=== PATIENT | female | born 1965 | race Caucasian/White ===

== ENCOUNTER → 2016-04-17 | Outpatient (CLI) | payer BC ==
[2016-04-17 11:06] LABS: Follicle Stimulating Hormone 54.7 mIU/mL
--- NOTE | 2016-04-17 13:20 | MM ---
Reason for exam: screening (asymptomatic). Last mammogram was performed 2 years and 5 months ago. History: Patient is postmenopausal. Took hormonal contraceptives for 8 years beginning at age 32. Physical Findings: A clinical breast exam by your physician is recommended on an annual basis and results should be correlated with mammographic findings. MG Screening Mammo w CAD Bilateral CC and MLO view(s) were taken. Prior study comparison: November 27, 2013, bilateral MG screening mammo w CAD. November 25, 2012, bilateral digital screening mammo w/CAD. There are scattered fibroglandular densities. There is chronic nodularity in the right breast. No significant changes when compared with prior studies. ASSESSMENT: Benign, BI-RAD 2 RECOMMENDATION: Routine screening mammogram of both breasts in 1 year.
== END | disposition home or self-care (01) ==
LOC: RADMAMWWP 07:55
PROVIDERS: ATTEND Obstetrics & Gynecology
DX: Z12.31 Encounter for screening mammogram for malignant neoplasm of breast (principal); N91.2 Amenorrhea, unspecified; E78.5 Hyperlipidemia, unspecified; E03.9 Hypothyroidism, unspecified
CPT/HCPCS: 84439; 80061; 83001; 82670; 84443; G0202

== ENCOUNTER 2020-05-06 11:30 | Emergency (ER) | payer BC ==
[2020-05-06 11:54] VITALS: BP 162/101; PULSE 92; RESP 20; TEMP 98.4
--- NOTE | 2020-05-06 12:53 | XR ---
EXAMINATION TYPE: XR wrist complete LT DATE OF EXAM: 05/06/2020 CLINICAL HISTORY: pain TECHNIQUE: Frontal, lateral and oblique images of the left wrist are obtained. COMPARISON: None. FINDINGS: There is no acute fracture/dislocation evident. The joint spaces appear within normal bolton its. The overlying soft tissue appears unremarkable. IMPRESSION: There is no acute fracture or dislocation seen. ICD 10 NO FRACTURE, INITIAL EVALUATION
--- NOTE | 2020-05-06 12:54 | XR ---
EXAMINATION TYPE: XR hand complete LT DATE OF EXAM: 05/06/2020 CLINICAL HISTORY: pain TECHNIQUE: Frontal, lateral and oblique images of the left hand are obtained. COMPARISON: None. FINDINGS: There is no acute fracture/dislocation evident. The joint spaces appear within normal limi ts. The overlying soft tissue appears unremarkable. IMPRESSION: There is no acute fracture or dislocation. ICD 10 NO FRACTURE, INITIAL EVALUATION
--- NOTE | 2020-05-06 13:16 | ED ---
General Adult HPI - General Chief complaint: Extremity Injury, Upper Stated complaint: lt hand injury Source: patient Mode of arrival: ambulatory Limitations: no limitations - History of Present Illness Initial comments: 54-year-old female with a past medical history of hypertension presents to the emergency room for a chief complaint of hand pain. Patient reports that she had her dog on a leash yesterday. States that the dog pulled her into the railing and she had her hand on the railing. States she is having pain in the wrist and hand, especially the thumb. She states it is painful to move her thumb. Patient denies any other injuries. Denies hitting her head.Patient has no other complaints at this time including shortness of breath, chest pain, abdominal pain, nausea or vomiting, headache, or visual changes. - Related Data Allergies Allergy/AdvReac Type Severity Reaction Status Date / Time No Known Allergies Allergy Verified 05/06/20 11:54 Review of Systems ROS Statement: Those systems with pertinent positive or pertinent negative responses have been documented in the HPI. ROS Other: All systems not noted in ROS Statement are negative. Past Medical History Past Medical History: Hypertension History of Any Multi-Drug Resistant Organisms: None Reported Past Surgical History: No Surgical Hx Reported Past Psychological History: No Psychological Hx Reported Smoking Status: Never smoker Past Alcohol Use History: None Reported Past Drug Use History: None Reported General Exam Limitations: no limitations General appearance: alert, in no apparent distress Head exam: Present: atraumatic, normocephalic, normal inspection Eye exam: Present: normal appearance, PERRL, EOMI. Absent: scleral icterus, conjunctival injection, periorbital swelling ENT exam: Present: normal exam, mucous membranes moist Neck exam: Present: normal inspection, full ROM. Absent: tenderness, meningismus, lymphadenopathy Respiratory exam: Present: normal lung sounds bilaterally. Absent: respiratory distress, wheezes, rales, rhonchi, stridor Cardiovascular Exam: Present: regular rate, normal rhythm, normal heart sounds. Absent: systolic murmur, diastolic murmur, rubs, gallop, clicks Extremities exam: Present: tenderness (Tenderness to the scaphoid of the left hand as well as the dorsum of the third metacarpal head.), normal capillary refill (Capillary refill less than 2 seconds, radial pulse 2+ in the left upper extremity.), joint swelling (Ecchymosis noted to the dorsum of the left third metacarpal head. No edema or ecchymosis noted elsewhere.), other (And station intact left upper extremity.). Absent: full ROM (Patient has pain with movement of the left thumb but is able to do so. Range of motion is limited. Full range motion of the second through fifth digits.) Course Vital Signs 05/06/20 11:52 Temperature 98.4 F Pulse Rate 92 Respiratory 20 Rate Blood Pressure 162/101 O2 Sat by Pulse 99 Oximetry Procedures - Orthopedic Splinting/Casting Injury #1 Side: left Upper Extremity Injury Location: short arm Upper Extremity Immobilizer: thumb spica Additional Comments: Neurovascular status intact after splint applied Medical Decision Making - Medical Decision Making X-ray is were negative. However given pain in the anatomical snuffbox patient was splinted in a thumb spica given concern for occult scaphoid fracture versus soft tissue injury. Recommend Rice therapy and Motrin Tylenol for pain. She will follow up with orthopedics, referral given. Disposition Clinical Impression: Left wrist pain Narrative: rule out scaphoid fracture Disposition: HOME SELF-CARE Condition: Good Instructions (If sedation given, give patient instructions): Wrist Injury (ED) Additional Instructions: Please take Motrin and Tylenol for pain. Please rest ice and elevate the left arm. Please keep splint dry and in place. Follow-up with orthopedics by calling today for earliest appointment. Return to the emergency room for any worsening symptoms. Is patient prescribed a controlled substance at d/c from ED?: No Referrals: Branden Lindsey DO [Primary Care Provider] - 1-2 days Jose Mcintosh DO [Doctor of Osteopathic Medicine] - 1-2 days Time of Disposition: 13:15
== END 2020-05-06 13:30 | disposition home or self-care (01) ==
LOC: EC 11:30
DX: M25.532 Pain in left wrist (principal); S60.222A Contusion of left hand, initial encounter; X50.0XXA Overexertion from strenuous movement or load, initial encounter; Y93.K1 Activity, walking an animal
CPT/HCPCS: 29125; 99283

== ENCOUNTER → 2023-12-14 | Outpatient (CLI) | payer BC ==
--- NOTE | 2023-12-15 11:02 | MM ---
Reason for Exam: Screening (asymptomatic). Last mammogram was performed 7 year(s) and 7 month(s) ago. Patient History: Menarche at age 12. First Full-Term at age 29. Late child-bearing (after 29). Postmenopausal. Hormonal Contraceptives for 8 years from age 32 until age 50. Risk Values: Tereza 5 year model risk: 1.9%. NCI Lifetime model risk: 10.2%. Prior Study Comparison: 11/25/2012 Bilateral Screening Mammogram, [facility]. 11/27/2013 Bilateral Screening Mammogram, [facility]. 04/17/2016 Bilateral Screening Mammogram, [facility]. Tissue Density: The breasts are almost entirely fatty. Findings: Analyzed By CAD. Right breast: There is no suspicious group of microcalcifications or new suspicious mass. Left breast: There is no suspicious group of microcalcifications or new suspicious mass. Overall Assessment: Negative, BI-RAD 1 Management: Screening Mammogram of both breasts in [address] [facility] will attempt to contact patient to return for supplemental views and ultrasound if indicated. Patient should continue monthly self-breast exams. A clinical breast exam by your physician is recommended on an annual basis. This exam should not preclude additional follow-up of suspicious palpable abnormalities. Note on Tereza scores and lifetime risk: 1. A Tereza score greater than 3% is considered moderate risk. If this is the case, consider specialist referral to assess eligibility for a risk reducing agent. 2. If overall lifetime risk for the development of breast cancer is 20% or higher, the patient may qualify for future screening with alternating mammogram and breast MRI. [facility], , 12/15/2023 10:58 AM. Electronically signed and approved by: Aidan Baires DO
== END | disposition home or self-care (01) ==
LOC: RADMAMWWP 16:10
PROVIDERS: ATTEND Obstetrics & Gynecology
CPT/HCPCS: 77067